=== PATIENT | female | born 1945 | race Caucasian/White ===

== ENCOUNTER → 2016-11-19 | Outpatient (CLI) | payer MEDICARE, BC ==
[~2016-11-19] MED LIST: ADALAT CC PO; ASPIRIN81 MG PO; BUMEX1 MG PO; COREG3.125 MG PO; COUMADIN PO; CRESTOR5 MG PO; FAMOTIDINE PO; GABAPENTIN600 MG PO; GLUCOTROL PO; JANUVIA50 MG PO; LANTUS100 U/ML SUBQ; OXYCONTIN PO; PLAVIX PO; TEMAZEPAM PO; ZESTORETIC 20/11 TAB PO
--- NOTE | ~2016-11-19 | CR230 ---
[facility] A Service of [facility] & [facility] RADIOLOGY TEXT RESULTS PATIENT: CONSTANTINO MI LOCATION: [facility] : 49 UNIT #: [id number] AGE: [address]: Edith Gee MD SEX: F ORDER DR: [id number] [facility] [address] [place], [place] [address] [id number] O MR#: [id number] Acc #: [id number] NAME: CONSTANTINO MI : 1945 SEX: F STUDY DATE/TIME: 11/19/2016 12:17 UNIT: [facility] ROOM: STUDY DESCRIPTION: CR Shoulder Min 2 View Rt Attending Physician: Edith Gee M.D. Referring Physician: Edith Gee M.D. Ordering Physician: Edith Gee M.D. Primary Care Physician: Edith Gee M.D. MEDICAL IMAGING REPORT This report is preliminary unless electronic signature is present EXAM Right shoulder, 11/19 INDICATION Osteoarthritis. Shoulder pain and decreased range of motion for one week. No known trauma. FINDINGS Three views of the right shoulder were obtained. There is AC joint and glenohumeral joint arthropathy with spur formation. No fracture or dislocation is seen. There is no AC joint separation. Incidental note is made of atherosclerotic disease. IMPRESSION AC joint and glenohumeral joint arthropathy. No acute findings in the shoulder. Dictated by... Mandeep Russell Jr., M.D. THIS IS AN ELECTRONICALLY VERIFIED REPORT Mandeep Russell Jr., M.D. at 11/21/2016 6:07 AM ARYAN/patrizia TD: 11/20/2016 11:32 JOB #: [id number] MEDICAL IMAGING REPORT Page 1 of 1 COPY
== END | disposition home or self-care (01) ==
LOC: CRAD 11:49
DX: M19.011 Primary osteoarthritis, right shoulder (principal)
CPT/HCPCS: 73030

== ENCOUNTER 2016-12-22 09:29 | Emergency (ER) | payer MEDICARE, BC ==
--- NOTE | ~2016-12-22 | CR151 ---
[facility] A Service of [facility] RADIOLOGY TEXT RESULTS PATIENT: CONSTANTINO MI LOCATION: SED : 49 UNIT #: [id number] AGE: [address]: NELSON PASTOR SEX: F ORDER DR: [id number] [address] [address] [id number] MR#: [id number] Acc #: [id number] NAME: CONSTANTINO MI : 1945 SEX: F STUDY DATE/TIME: 12/22/2016 11:54 UNIT: SED ROOM: STUDY DESCRIPTION: CR Hip Min 2 Views Rt Attending Physician: Nelson Pastor Aprn Ordering Physician: Nelson Pastor Aprn Primary Care Physician: Edith Gee M.D. MEDICAL IMAGING REPORT This report is preliminary unless electronic signature is present. EXAM Right hip, 12/22/2016 at 1154 hours CLINICAL HISTORY 4-day history of right hip pain. History of prior hip replacement. No reported injury. Pain with weightbearing. COMPARISON Pelvis film 04/19/2012 FINDINGS AP pelvis and AP and frog lateral views demonstrate bilateral hip replacement change with screwed acetabular components a noncemented femoral components bilaterally. There is degenerative change and spurring at both hips, right greater than left, with ossicles at the right greater trochanter greater than left. There are diffuse atherosclerotic calcifications. There is degenerative change at the pubic symphysis and the sacroiliac joints similar to 04/19/2012. IMPRESSION 1. Postop change of bilateral hip replacements without fracture or hardware failure. 2. Soft tissue calcifications at both hips and both greater trochanters, right greater than left 3. Stable degenerative changes at the pubic symphysis. No pelvic fracture seen. 4. Diffuse atherosclerotic calcifications are present. Dictated by... Isabel Whitlock M.D. [facility] A Service of [facility] RADIOLOGY TEXT RESULTS PATIENT: CONSTANTINO MI LOCATION: SED : 49 UNIT #: [id number] AGE: [address]: NELSON PASTOR SEX: F ORDER DR: THIS IS AN ELECTRONICALLY VERIFIED REPORT Isabel Whitlock M.D. at 12/23/2016 9:48 AM Meliton TD: 12/22/2016 21:40 JOB #: [id number] MEDICAL IMAGING REPORT Page 1 of 1
== END 2016-12-22 12:45 | disposition home or self-care (01) ==
LOC: SED 09:29
DX: S39.012A Strain of muscle, fascia and tendon of lower back, initial encounter (principal); M54.31 Sciatica, right side; E11.51 Type 2 diabetes mellitus with diabetic peripheral angiopathy without gangrene; E78.5 Hyperlipidemia, unspecified; I10 Essential (primary) hypertension; I25.2 Old myocardial infarction; Z79.4 Long term (current) use of insulin; Z79.82 Long term (current) use of aspirin; Z79.01 Long term (current) use of anticoagulants; Z79.899 Other long term (current) drug therapy
CPT/HCPCS: 73502; 96372; 99283; J1170